=== PATIENT | male | born 1975 | race Caucasian/White ===

== ENCOUNTER → 2019-05-18 | Day surgery (SDC) | payer OTHER ==
[~2019-05-18] MED LIST: MULTI VITAMIN1 EACH PO; TRAMADOL HCL-AP1 TAB PO
== END | disposition home or self-care (01) ==
LOC: ADM 05-15 08:00 → CIR.AMB 08:00
PROVIDERS: Plastic Surgery
PROC: 0HB7XZZ Excision of Abdomen Skin, External Approach (ICD-10-PCS; principal; 2019-05-18 16:30)
DX: L91.0 Hypertrophic scar (principal); L98.7 Excessive and redundant skin and subcutaneous tissue; Z98.84 Bariatric surgery status